=== PATIENT | female | born 1985 | race Caucasian/White ===

== ENCOUNTER 2021-08-04 10:22 | Emergency (ER) | payer OTHER, SELFPAY ==
--- NOTE | 2021-08-04 11:03 | PC.NURSE ---
Addendum entered by Jerrell Pal RN 08/04/21 11:04: IV removed in waiting room. Original Note: Pt. requested IV to be removed that placed by EMS. Pt. wants to leave without being seen by a provider.
== END 2021-08-04 11:03 | disposition left against medical advice (07) ==
DX: Z53.21 Procedure and treatment not carried out due to patient leaving prior to being seen by health care provider (principal)
CPT/HCPCS: 99199

== ENCOUNTER 2021-11-24 14:13 | Emergency (ER) | payer OTHER, SELFPAY ==
[2021-11-24 14:35] VITALS: BP 135/98; PULSE 103; RESP 20; TEMP 36.7; O2SAT 100
--- NOTE | 2021-11-24 15:14 | ED.EXTPRO ---
HPI - Extremity Problem General Chief complaint: Extremity Injury, Upper Stated complaint: shoulder pain Time Seen by Provider: 11/24/21 14:40 Source: patient and RN notes reviewed Mode of arrival: ambulatory Limitations: no limitations History of Present Illness HPI Narrative: Patient presents today complaining of right neck, upper back, and shoulder pain since yesterday afternoon after falling asleep and waking up with the pain. Patient has narcolepsy and believes she may have fallen asleep in an odd position with her arm above her head. Denies any injury or trauma. She does report sporadic tingling to her first 3 fingers on her right hand. She reports decreased range of motion of her right arm due to pain. She currently rates her pain 7/10 and has been using ice, heat, Excedrin back and body. Pain increases significantly with any movement of her arm or neck. MD Complaint: extremity pain Related Data Home Medications Medication Instructions Recorded Confirmed buprenorphine-naloxone [Suboxone] 1 tablet SUBLINGUAL DAILY 11/24/21 11/24/21 dextroamphetamine-amphetamine 11/24/21 Allergies Allergy/AdvReac Type Severity Reaction Status Date / Time meperidine Allergy Mild Verified 10/20/17 12:29 metoclopramide Allergy Mild Verified 10/20/17 12:29 baclofen Allergy Unknown Verified 10/20/17 12:29 haloperidol Allergy Unknown Verified 10/20/17 12:29 QUETIAPINE FUMARATE Allergy Mild Uncoded 10/20/17 12:29 PROCHLORPERAZINE EDISYLATE Allergy Unknown Uncoded 10/20/17 12:29 PROCHLORPERAZINE MALEATE Allergy Unknown Uncoded 10/20/17 12:29 Review of Systems Review of Systems: CONSTITUTIONAL: Denies body aches, fever, chills, or sweats. EYES: Denies visual changes, redness, or discharge. ENT: Denies rhinorrhea, congestion, sore throat, or otalgia. CARDIOVASCULAR: Denies chest pain, palpitations, or edema. RESPIRATORY: Denies cough or dyspnea. GASTROINTESTINAL: Denies abdominal pain, nausea, vomiting, or diarrhea. GENITOURINARY: Denies dysuria or hematuria. SKIN: Denies rash, itching, or wounds. MUSCULOSKELETAL: Neck, upper back, and shoulder pain NEUROLOGIC: Denies headache, numbness, or weakness.+ Tingling in fingers PSYCH: Denies depression or anxiety. PMFSH Past Medical History Medical History (Updated 11/24/21 @ 15:21 by Carmen Chan, [facility], ) Narcolepsy Comments At time of signature, I have reviewed and agree with nursing past medical, surgical, social and family history unless otherwise noted. Please see nursing chart for further information. There is no relevant family history pertinent to the presenting complaint she is a Exam Narrative: GENERAL: Well-appearing, well-nourished, and in mild pain distress. HEAD: Normocephalic, atraumatic. EYES: EOMI. No redness or drainage. Conjunctivae normal. ENT: Mucous membranes pink and moist. Nares clear. No rhinorrhea. TMs normal bilaterally. Throat normal. Uvula midline. NECK: Tenderness to the right cervical paraspinal muscles that extends to the trapezius and laterally to the shoulder and anteriorly to the right upper chest. CHEST: No respiratory distress. MUSCULOSKELETAL: No bony tenderness of the spine. EXTREMITIES: Patient has 45 degree movement anteriorly and laterally of her right arm. She has full internal rotation and almost full external rotation but limited due to pain. Distal sensation intact. Capillary refill normal. Radial pulse normal. 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 SKIN: Warm, dry, no rash. Capillary refill normal. Normal skin turgor. NEURO: No focal deficits. Alert and oriented x3. Gait steady. PSYCH: Normal affect. No signs of depression or anxiety. Course Course Level of Care: Express Care Visit Vital Signs Vital signs: Vital Signs Temperature 98.1 F 11/24/21 14:35 Pulse Rate 103 H 11/24/21 14:35 Respiratory Rate 20 11/24/21 14:35 Blood Pressure 135/98 H 11/24/21 14:35 Pulse Oximetry 100 11/24/21 14:35 Tem
== END 2021-11-24 15:47 | disposition home or self-care (01) ==
PROVIDERS: Emergency Provider Nurse Practitioner
DX: M43.6 Torticollis (principal); G47.419 Narcolepsy without cataplexy
CPT/HCPCS: 99213; G0463

== ENCOUNTER 2023-01-03 19:56 | Emergency (ER) | payer OTHER, SELFPAY ==
--- NOTE | 2023-01-03 20:02 | ED.URI ---
HPI - URI/Sore Throat General Chief Complaint: Upper Respiratory Infection Stated Complaint: uri Time Seen by Provider: 01/03/23 20:02 Source: patient, RN notes reviewed and old records reviewed Mode of arrival: ambulatory Limitations: no limitations History of Present Illness HPI Narrative: 37-year-old female presents to the [facility] with complaints sinus congestion, frontal headache for 3-4 weeks. Was treating it as a sinus infection with [id number] treatments, worse over last couple of days. States that she is now blowing out green copious amounts of thick mucus Denies fevers Related Data Home Medications Medication Instructions Recorded Confirmed buprenorphine 8 mg-naloxone 2 mg 1 tablet sublingual DAILY 11/24/21 11/24/21 sublingual tablet dextroamphetamine-amphetamine 20 11/24/21 mg tablet Allergies Allergy/AdvReac Type Severity Reaction Status Date / Time meperidine Allergy Mild Verified 10/20/17 12:29 metoclopramide Allergy Mild Verified 10/20/17 12:29 baclofen Allergy Unknown Verified 10/20/17 12:29 haloperidol Allergy Unknown Verified 10/20/17 12:29 QUETIAPINE FUMARATE Allergy Mild Uncoded 10/20/17 12:29 PROCHLORPERAZINE EDISYLATE Allergy Unknown Uncoded 10/20/17 12:29 PROCHLORPERAZINE MALEATE Allergy Unknown Uncoded 10/20/17 12:29 Review of Systems Review of Systems: All systems reviewed & are unremarkable except as noted in HPI and below Constitutional: Constitutional: Reports no additional constitutional complaints Eyes: Eyes: Reports no additional eye complaints ENT: Reports as per HPI, Reports otalgia and Reports nasal congestion Cardiovascular: Cardiovascular: Reports no additional cardiovascular complaints, Denies chest pain and Denies dyspnea Respiratory: Respiratory: Reports no additional respiratory complaints, Denies chest congestion, Denies cough and Denies dyspnea Gastrointestinal: Gastrointestinal: Reports no additional gastrointestinal complaints, Denies abdominal pain, Denies nausea and Denies vomiting Musculoskeletal: Musculoskeletal: Reports no additional musculoskeletal complaints Integumentary/Breasts: Skin/Breast: Reports system reviewed and no additional complaints, except as docu Neurologic: Reports system reviewed and no additional complaints, except as documented Psychiatric: Psychiatric: Reports no additional psychiatric complaints Allergic/Immunologic: Allergic/Immunologic: Reports no additional allergic/immunologic complaints PMFSH Past Medical History Medical History Narcolepsy Comments At the time of my signature, I reviewed and agree with the nursing past medical, surgical, social, and family history. There is no relevant family history pertinent to the patient complaint. Exam Const: General: cooperative, healthy appearing, comfortable, no acute distress, well developed, alert and well nourished Nutritional Appearance: well nourished Orientation/consciousness: patient oriented x3 Limitations: no limitations HENMT: Head: normal to inspection Ears: hearing grossly normal bilaterally, external ears normal, TM normal on the right, EAC's normal, mastoids normal and TM abnormal bulging on the left and with fluid behind the TM on the left Face/Nose/Sinus: Normal external nose present, Normal nares present, Abnormal mucous membranes and turbinates present boggy bilateral and erythematous bilateral and normal facial exam Face and sinus: normal facial exam Mouth: Yes Normal oral and palatal mucosa present, Yes lip normal and Yes moist mucous membranes Throat: posterior oropharynx normal and uvula midline Eyes: General: appearance normal, both eyes and all related structures Alignment and Position: alignment normal Periorbital: periorbital findings normal Conjunctivae: conjunctivae normal Pupils: Equal, round and reactive pupils present EOM: EOMs intact bilaterally Neck: Neck: normal visua
[2023-01-03 20:06] VITALS: BP 134/86; PULSE 79; RESP 16; TEMP 36.3; O2SAT 99
== END 2023-01-03 20:37 | disposition home or self-care (01) ==
PROVIDERS: Emergency Provider Nurse Practitioner
DX: J01.40 Acute pansinusitis, unspecified (principal)
CPT/HCPCS: 99213; G0463

== ENCOUNTER 2024-02-29 14:27 | Emergency (ER) | payer OTHER, SELFPAY ==
--- NOTE | ~2024-02-29 | CT_ITS ---
EXAMINATION: CT brain wo con DATE: 02/29/2024 19:38 INDICATION: AMS . TECHNIQUE: Computed tomography (CT) of the head was performed without intravenous contrast. The mA wa s adjusted according to patient size. Iterative reconstruction technique was employed. The dose-lengt h product was 605.33 mGy-cm. COMPARISON: 08/13/2011. FINDINGS: No acute intracranial hemorrhage or extra-axial fluid collection. No hydrocephalus, mass, or herniation. No acute ischemic infarct. Unremarkable dural venous sinus attenuation. No acute osseous abnormality. Posterior ethmoid and sphenoid sinus opacification with surrounding sclerosis, the remaining aerated spaces are clear. IMPRESSION: No acute intracranial process. Chronic posterior ethmoid and sphenoid sinusitis. Reviewed, dictated and finalized at location K.
[2024-02-29 14:39] VITALS: BP 176/107; PULSE 119; RESP 24; TEMP 37.1; O2SAT 100
--- NOTE | 2024-02-29 14:48 | ECG_ITS ---
SEE SCANNED COPY FOR CONFIRMED REPORT MTDD
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
[2024-02-29 15:33] LABS: Basophils Percent Auto 0.3 % (0.2-1.2); Eosinophils Percent Auto 0.2 % (0-4.4); Hematocrit 42.3 % (37.0-47.0); Hemoglobin 13.9 g/dL (12.0-15.0); Immature Granulocyte Absolute 0.04 K/mm3 (0.00-0.031); Immature Granulocyte Percent A 0.4 % (0-0.5); Lymphocytes Absolute Auto 1.45 K/mm3 (0.9-3.2); Mean Corpuscular HGB Conc 32.9 g/dl (32-36); Mean Corpuscular Hemoglobin 30.5 pg (26-34); Mean Corpuscular Volume 92.8 fl (80-100); Mean Platelet Volume 11.2 fl (7.4-10.4); Monocytes Absolute Auto 0.6 K/mm3 (0.1-0.6); Monocytes Percent Auto 5.4 % (2.6-8.5); Neutrophils Absolute Auto 8.3 K/mm3 (1.3-6.7); Neutrophils Percent Auto 79.7 % (45.5-73.1); Platelet Count Result 475 k/mm3 (150-375); Red Blood Count 4.56 M/mm3 (4.2-5.4); Red Cell Distribution Width 12.2 % (11.5-14.5); White Blood Count 10.4 K/mm3 (4.5-10.0)
[2024-02-29 15:44] LABS: Acetaminophen < 10 ug/mL (10-30); Ethanol < 10 mg/dL (<10); Salicylate < 1.0 mg/dL (2-20)
[2024-02-29 15:45] LABS: Alanine Aminotransferase 18 U/L (6-35); Albumin Level 5.1 g/dL (3.5-5.1); Alkaline Phosphatase 83 U/L (38-126); Anion Gap 10 mmol/L (4-12); Aspartate Amino Transferase 26 U/L (14-36); Bilirubin,Total 0.6 mg/dL (0.2-1.3); Blood Urea Nitrogen 10 mg/dL (7-17); Calcium 10.2 mg/dL (8.4-10.2); Carbon Dioxide 28 mmol/L (22-30); Chloride 102 mmol/L (98-107); Estimated CRCL calculation 82 ml/min; Estimated Glomerular Filt Rate > 60; Glucose 108 mg/dL (65-110); Potassium 3.7 mmol/L (3.4-5.0); Sodium 140 mmol/L (137-145)
[2024-02-29 15:47] LABS: Appearance Urine Turbid (Clear); Bacteria Urine None Seen /hpf; Bilirubin Urine Negative (Negative); Blood Urine 3+ (Negative); Calcium Oxalate Crystals Urine Present /hpf; Color Urine Yellow (Yellow); Glucose Urine UA Negative (Negative); Ketones Urine 1+ mg/dL (Negative); Leukocyte Esterase Ur 1+ LEU/UL (Negative); Need Manual Microscopic Reviewed; Nitrate Urine Negative (Negative); Non Pathogenic Casts 0-2; Protein Urine 1+ mg/dL (Negative); RBC Urine 21-50 /hpf (0-2); Specific Grav Ur 1.017 (1.001-1.035); Squamous Epithelial Cell Urine Occasional /hpf (Few); WBC Urine 0-5 /hpf (0-3)
[2024-02-29 15:48] LABS: Add Urine Microscopic? YES
[2024-02-29 15:52] LABS: Amphetamine Screen Urine Positive (Negative); Barbiturate Screen Urine Negative (Negative); Benzodiazepines Screen Urine Negative (Negative); Cannabinoid Screen Urine Positive (Negative); Cocaine Screen Urine Negative (Negative); Methadone Screen Urine Negative (Negative); Opiate Screen Urine Negative (Negative); Phencyclidine Screen Urine Negative (Negative)
[2024-02-29 16:04] LABS: Influenza A QL RT-PCR Negative (Negative); Influenza B QL RT-PCR Negative (Negative); RSV RNA, RT-PCR Negative (Negative); SARS-CoV-2 RNA PCR Negative (Negative)
[2024-02-29 16:32] LABS: Thyroid Stimulating Hormone Reflex 0.337 uIU/mL (0.465-4.68)
[2024-02-29 17:20] LABS: Free T4 Free Thyroxine Reflex 1.21 ng/dL (0.78-2.19)
[2024-02-29 18:07] LABS: Total Triiodothyronine (T3) 1.35 NG/ML (0.97-1.69)
[2024-02-29 21:14] VITALS: BP 146/111; PULSE 97; RESP 16; O2SAT 100
== END 2024-03-01 00:43 ==
PROVIDERS: Emergency Provider Emergency Medicine
DX: F29 Unspecified psychosis not due to a substance or known physiological condition (principal); Z11.52 Encounter for screening for COVID-19
CPT/HCPCS: 36415; 70450; 80053; 80307; 81001; 81025; 84439; 84443; 84480; 85025; 87637; 93005; 99285

== ENCOUNTER 2024-11-30 16:14 | Emergency (ER) | payer OTHER, SELFPAY ==
[2024-11-30 16:17] VITALS: BP 133/91; PULSE 85; RESP 16; TEMP 37; O2SAT 100
--- NOTE | 2024-11-30 17:01 | ED_ITS ---
HPI - URI/Sore Throat General Chief Complaint: Upper Respiratory Infection Stated Complaint: Ears Irritation Time Seen by Provider: 11/30/24 16:54 Source: patient and RN notes reviewed Mode of arrival: ambulatory Limitations: no limitations History of Present Illness HPI Narrative: Patient presents today complaining of intermittent upper respiratory symptoms for the past month. She is currently complaining of a headache, nasal congestion and pressure, and bilateral ear pressure fairly consistently over the past 2 weeks. She initially had a cough but this has since resolved. Denies fever. She has tried Flonase, Tylenol sinus, and Teri without relief. Related Data Home Medications ?Medication ?Instructions ?Recorded ?Confirmed ?Last Taken ?Type buprenorphine 8 mg-naloxone 2 mg 1 tablet sublingual DAILY 11/24/21 11/24/21 Unknown History sublingual tablet dextroamphetamine-amphetamine 20 11/24/21 Unknown History mg tablet Allergies Allergy/AdvReac Type Severity Reaction Status Date / Time meperidine Allergy Mild Verified 10/20/17 12:29 metoclopramide Allergy Mild Verified 10/20/17 12:29 baclofen Allergy Unknown Verified 10/20/17 12:29 haloperidol Allergy Unknown Verified 10/20/17 12:29 QUETIAPINE FUMARATE Allergy Mild Uncoded 10/20/17 12:29 PROCHLORPERAZINE EDISYLATE Allergy Unknown Uncoded 10/20/17 12:29 PROCHLORPERAZINE MALEATE Allergy Unknown Uncoded 10/20/17 12:29 Review of Systems Review of Systems: CONSTITUTIONAL: Denies body aches, fever, chills, or sweats. EYES: Denies visual changes, redness, or discharge. ENT: Denies rhinorrhea,sore throat. + bilateral ear pressure, nasal congestion and sinus pressure ia. CARDIOVASCULAR: Denies chest pain, palpitations, or edema. RESPIRATORY: Denies cough or dyspnea. GASTROINTESTINAL: Denies abdominal pain, nausea, vomiting, or diarrhea. GENITOURINARY: Denies dysuria or hematuria. SKIN: Denies rash, itching, or wounds. MUSCULOSKELETAL: Denies back pain, joint pain, or myalgia. NEUROLOGIC: Denies numbness, tingling, or weakness.+ frontal headache PSYCH: Denies depression or anxiety. [facility] Past Medical History Medical History Narcolepsy Social History Social History Substance use type: former substance user Comments At time of signature, I have reviewed and agree with nursing past medical, surgical, social and family history unless otherwise noted. Please see nursing chart for further information. There is no relevant family history pertinent to the presenting complaint Exam Narrative: GENERAL: Well-appearing, well-nourished, and in no acute distress. HEAD: Normocephalic, atraumatic. EYES: EOMI. No redness or drainage. Conjunctivae normal. ENT: Mucous membranes pink and moist. Nares congested. No rhinorrhea. Bilateral frontal and maxillary sinus tenderness. Bilateral mild serous effusions without evidence of bacterial infection. Throat normal. Uvula midline. NECK: Normal AROM. Supple. No lymphadenopathy. CHEST: No respiratory distress. Clear to auscultation. HEART: Regular rate and rhythm. No murmur appreciated. EXTREMITIES: Normal range of motion. No edema. SKIN: Warm, dry, no rash. Capillary refill normal. Normal skin turgor. NEURO: No focal deficits. Alert and oriented x3. Gait steady. PSYCH: Normal affect. No signs of depression or anxiety. Course Course Level of Care: Express Care Visit Vital Signs Vital signs: Vital Signs Temperature 98.6 F 11/30/24 16:17 Pulse Rate 85 11/30/24 16:17 Respiratory Rate 16 11/30/24 16:17 Blood Pressure 133/91 H 11/30/24 16:17 Pulse Oximetry 100 11/30/24 16:17 Oxygen Delivery Room Air 11/30/24 16:17 Temperature 98.6 F 11/30/24 16:17 Pulse Rate 85 11/30/24 16:17 Respiratory Rate 16 11/30/24 16:17 Blood Pressure 133/91 H 11/30/24 16:17 Pulse Oximetry 100 11/30/24 16:17 Oxygen Delivery Room Air 11/30/24 16:17 Reviewed MDM - URI/Sore Throat MDM Narrative Medical decision making narrative: Patient will be treated with Augmentin for bacterial sinusitis. Anticipatory guidance. Differential Diagnosis Differential diagnosis: Likely upper respiratory infection, otitis media, sinusitis and viral infection Critical Care Time Critical Care Time Critical Care Time: No Discharge Plan Discharge Clinical Impression: Sinusitis Qualifiers: Sinusitis location: unspecified location Chronicity: acute Recurrence: non- recurrent Qualified Code(s): J01.90 - Acute sinusitis, unspecified Patient Disposition: Home, Self-Care Condition: Stable Instructions: Antibiotic Form, Sinusitis (ED) Additional Instructions: Please take the Augmentin as prescribed until gone. You may continue [id number] medication for symptoms as well. Follow-up with your PCP in 3 days if symptoms are not improving. Your blood pressure was elevated above 120/80 today at Urgent Care. This puts you above the threshold for follow up. Please schedule a followup visit with your personal physician as soon as possible, for further evaluation and treatment. Even blood pressure exceeding 120/80 may indicate pre-hypertension. Patient Language: Icelandic Prescriptions: New amoxicillin-pot clavulanate 875-125 mg tablet 1 tablet PO Q12H 10 Days Qty: 20 0RF No Action prednisone 20 mg tablet 20 mg PO DAILY Qty: 5 0RF dextroamphetamine-amphetamine 20 mg tablet buprenorphine-naloxone [Suboxone] 8-2 mg Tablet, Sublingual 1 tablet SUBLINGUAL DAILY cyclobenzaprine 10 mg tablet 10 mg PO TID PRN (Reason: muscle spasm) Qty: 20 0RF prednisone 20 mg tablet 40 mg PO DAILY 5 Days Qty: 10 0RF Follow-up/Referrals: PHYSICIAN,EDITOR IN CHIEF NEWSPAPER [Primary Care Provider] - Time of Disposition: 17:05
== END 2024-11-30 17:13 | disposition home or self-care (01) ==
PROVIDERS: Emergency Provider Nurse Practitioner
DX: J01.90 Acute sinusitis, unspecified (principal)
CPT/HCPCS: 99213; G0463

== ENCOUNTER 2025-01-23 15:48 | Emergency (ER) | payer OTHER, SELFPAY ==
--- NOTE | 2025-01-23 16:04 | ED_ITS ---
HPI - Neck Pain/Injury General Chief Complaint: Neck Pain/Injury Stated Complaint: lump left side of neck Time Seen by Provider: 01/23/25 16:04 Source: patient, RN notes reviewed and old records reviewed Mode of arrival: ambulatory Limitations: no limitations History of Present Illness HPI Narrative: Patient presents with complaints of painful lump on the left side of her neck. She denies all injury and trauma. She does report chronic dental problems, so she wonders if this is the source of her problem today. She is able to move head freely, manage his own secretions, no drooling or stridor noted. She does not appear to be in any obvious distress Related Data Home Medications ?Medication ?Instructions ?Recorded ?Confirmed ?Last Taken ?Type buprenorphine 8 mg-naloxone 2 mg 1 tablet sublingual DAILY 11/24/21 11/24/21 Unknown History sublingual tablet dextroamphetamine-amphetamine 11/24/21 Unknown History mg tablet buprenorphine 8 mg-naloxone 2 mg film 01/23/25 Unknown History sublingual film dextroamphetamine-amphetamine 10 01/23/25 Unknown History mg tablet hydroxyzine HCl 50 mg tablet mg 01/23/25 Unknown History lamotrigine 25 mg tablet mg 01/23/25 Unknown History lurasidone 40 mg tablet mg 01/23/25 Unknown History Allergies Allergy/AdvReac Type Severity Reaction Status Date / Time meperidine Allergy Mild Verified 10/20/17 12:29 metoclopramide Allergy Mild Verified 10/20/17 12:29 baclofen Allergy Unknown Verified 10/20/17 12:29 haloperidol Allergy Unknown Verified 10/20/17 12:29 QUETIAPINE FUMARATE Allergy Mild Uncoded 10/20/17 12:29 PROCHLORPERAZINE EDISYLATE Allergy Unknown Uncoded 10/20/17 12:29 PROCHLORPERAZINE MALEATE Allergy Unknown Uncoded 10/20/17 12:29 Review of Systems Review of Systems: All systems reviewed & are unremarkable except as noted in HPI and below Constitutional: Constitutional: Reports no additional constitutional complaints ENT: Reports system reviewed and no additional complaints, except as documented and Reports other (Multiple dental caries) Cardiovascular: Cardiovascular: Reports no additional cardiovascular complaints Respiratory: Respiratory: Reports no additional respiratory complaints Gastrointestinal: Gastrointestinal: Reports no additional gastrointestinal complaints Hematologic/Lymphatic: Hematologic/Lymphatic: Reports lymphadenopathy (left side of neck) [facility] Past Medical History Medical History Narcolepsy Social History Social History Substance use type: former substance user Comments At the time of my signature, I reviewed and agree with the nursing past medical, surgical, social, and family history. There is no relevant family history pertinent to the patient complaint. Exam Const: General: cooperative, no acute distress, alert and awake Orientation/consciousness: oriented to person, oriented to place and oriented to time HENMT: Head: normal to inspection Ears: TM's normal bilaterally Mouth: Yes moist mucous membranes Teeth and gingiva: poor dentition Neck: Lymphatic: lymphadenopathy left anterior cervical Resp: Effort & Inspection: normal respiratory effort and able to speak in complete sentences Auscultation: clear to auscultation bilaterally, no crackles, no rales, no rhonchi and no wheezes Cardio: Palpation: normal PMI Rate: regular rate Rhythm: regular rhythm Heart sounds: S1 normal heart sound present and S2 normal heart sound present Neuro: General: oriented to person, oriented to place and oriented to time Cranial nerves: Yes CN's II-XII intact bilaterally Psych: Appearance: grossly normal Thought process: Normal thought process present Insight: Good insight present (Psych) Judgement: Good judgement present (Psych) Course Course Level of Care: Express Care Visit Vital Signs Vital signs: Reviewed MDM - Neck Pain/Injury MDM Narrative Medical decision making narrative: Patient with multiple dental caries with lymphadenopathy. Lymphadenopathy probably reactive to poor dentition. Treat as dental infection. Emergency department precautions discussed. Discharge instructions reviewed with patient, as well as provided in writing per nursing staff. The instructions also include specific and strict return/GO TO THE ER as well as f/u information. All questions have been answered, and the patient deny any further questions with discharge and discharge plan. Some parts of this dictation were generated by voice recognition software and may contain typographical and/or grammatical inaccuracies. Differential Diagnosis Differential diagnosis: Likely other (Otitis media) Medical Records Attestation: I reviewed the patient's medical records. Discharge Plan Discharge Clinical Impression: Chronic dental infection Patient Disposition: Home, Self-Care Condition: Stable Instructions: Antibiotic Form Additional Instructions: Take medications as prescribed. Follow with primary care provider an dentist. Emergency department for new or worse symptoms Patient Language: Chinese Prescriptions: New clindamycin HCl 300 mg capsule 300 mg PO TID Qty: 30 0RF No Action dextroamphetamine-amphetamine 20 mg tablet buprenorphine-naloxone [Suboxone] 8-2 mg Tablet, Sublingual 1 tablet SUBLINGUAL DAILY cyclobenzaprine 10 mg tablet 10 mg PO TID PRN (Reason: muscle spasm) Qty: 20 0RF dextroamphetamine-amphetamine 10 mg tablet hydroxyzine HCl 50 mg tablet lamotrigine 25 mg tablet buprenorphine-naloxone 8-2 mg film lurasidone 40 mg tablet Follow-up/Referrals: PHYSICIAN,TURBO OPERATOR [Primary Care Provider] - Time of Disposition: 16:51
[2025-01-23 16:10] VITALS: BP 135/82; PULSE 92; RESP 20; TEMP 37; O2SAT 100
[2025-01-23 17:02] LABS: EDSTREPNEGPOS1 Negative (Negative)
== END 2025-01-23 16:55 | disposition home or self-care (01) ==
PROVIDERS: Emergency Provider Nurse Practitioner Family
DX: K04.7 Periapical abscess without sinus (principal); Z79.899 Other long term (current) drug therapy
CPT/HCPCS: 87081; 87880; 99213; G0463